=== PATIENT | female | born 2000 | race Caucasian/White ===

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

== ENCOUNTER 2022-05-17 15:12 | Emergency (ER) | payer MEDICAID ==
[~2022-05-17] VITALS: Ht 157.5 cm; Wt 58.6 kg
[~2022-05-17 15:12] MED LIST: CITA-157
[2022-05-17 15:15] VITALS: BP 123/81
[2022-05-17] MEDS ORDERED: IBUP-1985 PO (16:25)
== END 2022-05-17 16:54 | disposition home or self-care (01) ==
LOC: ER 15:13
DX: O03.9 Complete or unspecified spontaneous abortion without complication (principal); F32.A Depression, unspecified; Z3A.01 Less than 8 weeks gestation of pregnancy
CPT/HCPCS: 36415; 84702; 99283

== ENCOUNTER 2022-08-08 17:49 | Emergency (ER) | payer MEDICAID ==
[~2022-08-08] VITALS: Ht 157.5 cm; Wt 59.1 kg
[~2022-08-08 17:49] MED LIST changes: +IBUP-1985 PO
[2022-08-08 17:57] VITALS: BP 110/62
[2022-08-08 18:24] LABS: CLARITY,URINE CLEAR (Clear); GLUCOSE, URINE NEGATIVE (Neg); KETONES,URINE NEGATIVE (Neg); LEUKOCYTE ESTERASE ,URINE NEGATIVE (Neg); NITRITES, URINE NEGATIVE (Neg); OCCULT BLOOD,URINE NEGATIVE (Neg); PH,URINE 7.5 (4.8-8.0); PROTEIN,URINE NEGATIVE (Neg); UROBILINOGEN,URINE 0.2 E.U/dL (0.2-1.0)
[2022-08-08 18:31] LABS: UA COLLECTION TYPE CLN CATCH MIDSTREAM
[2022-08-08 18:32] LABS: COLOR,URINE STRAW (Yellow)
--- NOTE | 2022-08-08 19:38 | NUR ---
ULTRASOUND AT BEDSIDE.
== END 2022-08-08 20:18 | disposition home or self-care (01) ==
LOC: ER 17:50
DX: O20.0 Threatened abortion (principal); Z3A.01 Less than 8 weeks gestation of pregnancy
CPT/HCPCS: 36415; 76801; 76802; 81003; 84702; 93976; 99284

== ENCOUNTER 2022-08-21 09:42 | Emergency (ER) | payer MEDICAID ==
[~2022-08-21] VITALS: Ht 157.5 cm; Wt 59.6 kg
[2022-08-21 10:25] LABS: CLARITY,URINE CLOUDY (Clear); COLOR,URINE YELLOW (Yellow); GLUCOSE, URINE NEGATIVE (Neg); KETONES,URINE NEGATIVE (Neg); LEUKOCYTE ESTERASE ,URINE NEGATIVE (Neg); NITRITES, URINE NEGATIVE (Neg); OCCULT BLOOD,URINE NEGATIVE (Neg); PH,URINE 8.5 (4.8-8.0); PROTEIN,URINE NEGATIVE (Neg); UROBILINOGEN,URINE 0.2 E.U/dL (0.2-1.0)
[2022-08-21 10:28] LABS: UA COLLECTION TYPE CLN CATCH MIDSTREAM
[2022-08-21 10:30] LABS: AMORPHOUS PHOSPHATES 2+
[2022-08-21 10:31] LABS: BACTERIA,URINE NONE SEEN /HPF (Neg); MUCUS STRANDS NONE SEEN /LPF (Neg); RBC,URINE NONE SEEN /HPF (0-2); SQUAMOUS EPITHELIAL CELL,UR FEW /LPF (FEW); WBC,URINE 0-4 /HPF (0-4)
--- NOTE | 2022-08-21 10:36 | NUR ---
PT GENERAL ASSESSMENT SIGNED OFF BY DEBO SUMNER.
[2022-08-21 10:53] VITALS: BP 107/60
--- NOTE | 2022-08-21 12:37 | NUR ---
I agree with Morenita RAE general assessment.
== END 2022-08-21 14:10 | disposition left against medical advice (07) ==
LOC: ER 09:44
DX: O20.0 Threatened abortion (principal); Z3A.09 9 weeks gestation of pregnancy; F31.9 Bipolar disorder, unspecified; Z79.899 Other long term (current) drug therapy
CPT/HCPCS: 36415; 76801; 81001; 84702; 86900; 86901; 93976; 99284